=== PATIENT | female | born 1930 | race Caucasian/White ===

== ENCOUNTER → 2019-12-19 | Outpatient (CLI) | payer MEDICARE, OTHER ==
[~2019-12-19] MED LIST: ALEN70 PO; ASPI325 PO; ATOR20 PO; CALMAGZIN PO; CIPRO500 MG PO; CYAN500 PO; DOCCAL240 PO; ENAL20 PO; ERGO400 PO; FISH1000 PO; Flagyl500 MG PO; GABA300 PO; HYDACE10B PO; HYDACE5 PO; HYDR1TAB94 PO; LAVAP17G PO; METO25 PO; MULVIT PO; MULVITMINF PO; NAPR220 PO; NAPR250 PO; OMEP20ER PO; OSTEO BI-FLEX1 EAC2 PO; OXYACE5T PO; PRAM.125 PO; PRAM.5 PO; PROM25 PO; PSYL5.85P PO; Prednisone20 MG PO; SIMV40 PO; Super B Comple150 MG PO; TAMS.4ER PO; THERA-D2000 UNIT PO; TRAM50 PO; TRAZ150T57 PO; TRAZ50 PO; UBID10; VITB100 PO
== END | disposition home or self-care (01) ==
LOC: PLD 08:31 → LAB SHORT 08:31
DX: D48.5 Neoplasm of uncertain behavior of skin (principal); L82.1 Other seborrheic keratosis
CPT/HCPCS: 88305

== ENCOUNTER 2019-12-22 09:15 | Observation (INO) | payer MEDICARE, OTHER ==
[~2019-12-22] VITALS: Ht 170.2 cm; Wt 66.5 kg
[~2019-12-22 09:15] MED LIST changes: -ATOR20 PO; -METO25 PO; -THERA-D2000 UNIT PO
[2019-12-22 09:51] LABS: BASOPHILS ABSOLUTE AUTO 0.05 K/mm3 (0.00-0.23); BASOPHILS PERCENT AUTO 1 % (0-2); EOSINOPHILS ABSOLUTE AUTO 0.09 K/mm3 (0.00-0.68); EOSINOPHILS PERCENT AUTO 2 % (0-6); Hematocrit 39.1 % (33.0-51.0); Hemoglobin 13.2 g/dL (11.5-16.0); IMMATURE GRAN ABSOLUTE AUTO 0.01 K/mm3 (0.00-0.10); IMMATURE GRAN PERCENT AUTO 0 % (0-1); LYMPHOCYTES ABSOLUTE AUTO 1.51 K/mm3 (0.84-5.20); LYMPHOCYTES PERCENT AUTO 26 % (21-46); MONOCYTES ABSOLUTE AUTO 0.33 K/mm3 (0.16-1.47); MONOCYTES PERCENT AUTO 6 % (4-13); Mean Corpuscular HGB 32.1 pg (26.0-34.0); Mean Corpuscular HGB Conc 33.8 g/dL (31.5-36.5); Mean Corpuscular Volume 95 fL (80-100); Mean Platelet Volume 9.7 fL (9.1-12.4); NEUTROPHILS PERCENT AUTO 66 % (41-73); Platelet Count 167 K/mm3 (150-400); RDW Coefficient Variation 12.5 % (11.7-14.2); RDW Standard Deviation 43.5 fL (35.1-46.3); Red Blood Cell Count 4.11 M/mm3 (3.80-5.20); White Blood Cell Count 5.89 K/mm3 (4.00-11.30)
[2019-12-22 09:56] LABS: Albumin, Blood 3.3 g/dL (3.4-5.0); Albumin/Globulin Ratio 1.1 (0.8-1.8); Bilirubin, Total 0.3 mg/dL (0.1-1.0); Bun/Creatinine Ratio 23.9 (12.0-20.0); Calcium, Blood 10.3 mg/dL (8.5-10.1); Creatinine, Blood 1.09 mg/dL (0.40-1.00); Globulin, Blood 3.1 g/dL (2.2-4.0); Potassium, Blood 4.2 mmol/L (3.5-5.5); Total Protein, Blood 6.4 g/dL (6.4-8.2)
[2019-12-22 10:00] LABS: Troponin I 0.058 ng/mL (0.000-0.040)
[2019-12-22 11:09] LABS: International Normalized Ratio 1.02; Prothrombin Time Results 10.9 Sec (9.7-11.5)
--- NOTE | 2019-12-22 14:53 | NUR ---
echocardiogram complete
--- NOTE | 2019-12-22 16:26 | NUR ---
ASSUMED CARE / DR DIA: REPORT RECEIVED FROM ONEYDA Kingston RN. ASSUMED CARE OF THIS PT AT APPROX 1500. ON ASSUMPTION OF CARE, PT IS AWAKE, A&O, INDEPENDENT IN ROOM. SHE DENIES CP AT THIS TIME & VSS, SLIGHT HTN. FRIEND IS AT BEDSIDE & PT DENIES NEEDS. DR DIA AT BEDSIDE TO EVAL PT. STS SHE IS OKAY TO HAVE DINNER TONIGHT, WE WILL CONTINUE TO TREND TROPONIN LEVELS & PT MAY D/C TOMORROW W/ SCHEDULED ANGIOGRAM IF NO FURTHER EPISODES OF CP OCCUR. IF CP OCCURS DURING THE NIGHT, PT MAY BE SCHEDULED FOR INPATIENT ANGIO TOMORROW. KEEP NPO AFTER MN EITHER WAY. LISINOPRIL ORDERS PLACED FOR BP CONTROL PHARMACY DOES NOT HAVE ENALOPRIL IN FORMULARY. WILL CONTINUE TO MONITOR & UPDATE NEEDED.
--- NOTE | 2019-12-22 18:37 | NUR ---
SHIFT SUMMARY: NO ACUTE CHANGES SINCE ASSUMING CARE. PT REMAINS A&O, IND IN ROOM, USING CANE FOR AMBULATION. PT ON RA W/ O2 SATS > 92%. MONITOR SHOWS SR W/ HR 60s. PT VOIDING W/O DIFFICULTY. WILL CONTINUE TO MONITOR & REPORT OFF TO ONCOMING RN.
[2019-12-23 04:04] LABS: BASOPHILS ABSOLUTE AUTO 0.05 K/mm3 (0.00-0.23); BASOPHILS PERCENT AUTO 1 % (0-2); EOSINOPHILS ABSOLUTE AUTO 0.17 K/mm3 (0.00-0.68); EOSINOPHILS PERCENT AUTO 3 % (0-6); Hematocrit 37.6 % (33.0-51.0); Hemoglobin 12.8 g/dL (11.5-16.0); IMMATURE GRAN ABSOLUTE AUTO 0.02 K/mm3 (0.00-0.10); IMMATURE GRAN PERCENT AUTO 0 % (0-1); LYMPHOCYTES ABSOLUTE AUTO 2.03 K/mm3 (0.84-5.20); LYMPHOCYTES PERCENT AUTO 32 % (21-46); MONOCYTES ABSOLUTE AUTO 0.49 K/mm3 (0.16-1.47); MONOCYTES PERCENT AUTO 8 % (4-13); Mean Corpuscular HGB 32.2 pg (26.0-34.0); Mean Corpuscular Volume 95 fL (80-100); Mean Platelet Volume 9.9 fL (9.1-12.4); NEUTROPHILS ABSOLUTE AUTO 3.53 K/mm3 (1.96-9.15); NEUTROPHILS PERCENT AUTO 56 % (41-73); Platelet Count 162 K/mm3 (150-400); RDW Coefficient Variation 12.5 % (11.7-14.2); RDW Standard Deviation 43.7 fL (35.1-46.3); Red Blood Cell Count 3.97 M/mm3 (3.80-5.20); White Blood Cell Count 6.29 K/mm3 (4.00-11.30)
[2019-12-23 04:18] LABS: International Normalized Ratio 1.07; Prothrombin Time Results 11.4 Sec (9.7-11.5)
[2019-12-23 04:27] LABS: Albumin, Blood 3.1 g/dL (3.4-5.0); Bilirubin, Total 0.5 mg/dL (0.1-1.0); Bun/Creatinine Ratio 21.4 (12.0-20.0); Creatinine, Blood 1.17 mg/dL (0.40-1.00); Magnesium, Blood 2.2 mg/dL (1.6-2.4); Potassium, Blood 3.9 mmol/L (3.5-5.5); Total Protein, Blood 6.1 g/dL (6.4-8.2)
--- NOTE | 2019-12-23 06:09 | NUR ---
SHIFT SUMMARY PT A&O; PT SBA TO BATHROOM FOR IV PUMP MANAGEMT; USES CANE PT STATES BASELINE; PT IS CURRENTLY NPO FOR ANTICIPATED PROCEDURES; PT DENIES CHEST PAIN T/O NIGHT; VSS; O2 SATS >94 ON RA; PT ASSISTED W/ AM CARE; CALL LIGHT IN REACH; BED IN LOWEST POSITION; WILL CONTINUE TO MONITOR UNTIL HAND OFF TO DAY SHIFT RN.
[2019-12-23] MEDS ORDERED: METO25 PO (11:20)
[2019-12-23] MEDS ORDERED: ATOR20 PO (11:20)
[2019-12-23] MEDS ORDERED: THERA-D2000 UNIT PO (11:21)
== END 2019-12-23 13:26 | disposition home or self-care (01) ==
LOC: ER 09:15 → PCU 09:16 → ER 12:12 → PCU 13:55
PROVIDERS: Emergency Medicine; Nurse Practitioner Acute Care; Physician Assistant; ADMIT Internal Medicine
DX: I21.4 Non-ST elevation (NSTEMI) myocardial infarction (principal); I12.9 Hypertensive chronic kidney disease with stage 1 through stage 4 chronic kidney disease, or unspecified chronic kidney disease; N18.3 Chronic kidney disease, stage 3 (moderate); M19.90 Unspecified osteoarthritis, unspecified site; K21.9 Gastro-esophageal reflux disease without esophagitis; E78.5 Hyperlipidemia, unspecified; I25.10 Atherosclerotic heart disease of native coronary artery without angina pectoris; G25.81 Restless legs syndrome; Z66 Do not resuscitate; Z79.82 Long term (current) use of aspirin; Z79.899 Other long term (current) drug therapy; Z79.02 Long term (current) use of antithrombotics/antiplatelets; Z88.6 Allergy status to analgesic agent
CPT/HCPCS: 36415; 71045; 80053; 83735; 84484; 85025; 85610; 85730; 93005; 93010; 93306; 96365; 96366; 99285-25; J1644; J7030

== ENCOUNTER → 2020-06-28 | Outpatient (CLI) | payer MEDICARE, OTHER ==
[~2020-06-28] MED LIST changes: +ATOR20 PO; +METO25 PO; +THERA-D2000 UNIT PO
[2020-06-28 19:39] LABS: Calcium, Urine 6.3 mg/dL (< 17.5); Calcium, Urine Calculation 44.1 mg/24hrs (42.0-353.0)
== END | disposition home or self-care (01) ==
LOC: LAB UCHC 09:00 → LAB SHORT 09:00
PROVIDERS: Family Medicine
DX: E21.3 Hyperparathyroidism, unspecified (principal)
CPT/HCPCS: 81050; 82340

== ENCOUNTER → 2020-10-09 | Outpatient (CLI) | payer MEDICARE, OTHER ==
[2020-10-09 14:57] LABS: Calcium, Urine 14.1 mg/dL (< 17.5); Calcium, Urine Calculation 70.5 mg/24hrs (42.0-353.0)
[2020-10-09 15:22] LABS: Creatinine Urine 97.4 mg/dL (27.00-270.00)
== END | disposition home or self-care (01) ==
LOC: LAB SHORT 10:54 → LAB 10:54 → PLD 10:54
PROVIDERS: Internal Medicine Endocrinology, Diabetes & Metabolism
DX: E83.52 Hypercalcemia (principal)
CPT/HCPCS: 81050; 82340; 82570

== ENCOUNTER → 2021-03-04 | Outpatient (CLI) | payer MEDICARE, OTHER ==
[2021-03-04 13:15] LABS: U Amphetamine Screen Not Detected; U Barbituate Screen Not Detected; U Benzodiazapine Screen Not Detected; U Buprenorphine Screen Not Detected; U Cannabinoids Screen Not Detected; U Cocaine Screen Not Detected; U Methadone Screen Not Detected; U Methamphetamine Screen Not Detected; U Opiates Screen Not Detected; U Oxycodone Screen Not Detected; U Phencyclidine Screen Not Detected; U Propoxyphene Screen Not Detected
[2021-03-04 15:13] LABS: Calcium, Urine 15.1 mg/dL (< 17.5); Calcium, Urine Calculation 211.4 mg/24hrs (42.0-353.0)
== END | disposition home or self-care (01) ==
LOC: LAB 08:50 → LAB SHORT 08:50
PROVIDERS: Family Medicine; Internal Medicine Endocrinology, Diabetes & Metabolism
DX: E83.52 Hypercalcemia (principal); G89.4 Chronic pain syndrome; Z79.899 Other long term (current) drug therapy
CPT/HCPCS: 81050; 82340; 82570

== ENCOUNTER → 2021-05-23 | Outpatient (CLI) | payer MEDICARE, OTHER ==
[2021-05-23 09:32] LABS: Appearance, Urine Clear (Clear); Bilirubin, Urine Neg (Neg); Blood, Urine Neg (Neg); Color, Urine Yellow (P-Yellow); Glucose Qualitative, Urine Neg (Neg); Ketones, Urine Neg (Neg); Leukocyte Esterase, Urine 2+ (Neg); Nitrite, Urine Neg (Neg); Protein, Urine Neg (Neg); Urobilinogen, Urine NORM (Normal)
[2021-05-23 10:05] LABS: Creatinine, Urine Random 81.5 mg/dL (27.00-270.00); Protein, Urine Random 15.3 mg/dL (0.0-11.9); Protein/Creat Ratio, Ur Random 0.2
[2021-05-23 11:06] LABS: Bacteria Mod /hpf; Mucus Light (0-Heavy); Squamous Epithelial Cells Few /hpf (Few)
== END | disposition home or self-care (01) ==
LOC: LAB SHORT 08:33 → LAB FUT 05-21 10:15
PROVIDERS: Internal Medicine
DX: N18.32 Chronic kidney disease, stage 3b (principal)
CPT/HCPCS: 81001; 82570; 84156

== ENCOUNTER 2021-06-20 16:47 | Observation (INO) | payer MEDICARE, OTHER ==
[~2021-06-20] VITALS: Ht 172.7 cm; Wt 69.0 kg
[~2021-06-20 16:47] MED LIST changes: +Enalapril Malea20 MG PO
[2021-06-20 17:13] LABS: Source, Urine Catheter
[2021-06-20 17:15] LABS: Appearance, Urine Clear (Clear); Bilirubin, Urine Neg (Neg); Blood, Urine 5+ (Neg); Color, Urine Yellow (P-Yellow); Glucose Qualitative, Urine Neg (Neg); Ketones, Urine Neg (Neg); Leukocyte Esterase, Urine 3+ (Neg); Nitrite, Urine Neg (Neg); Protein, Urine 2+ (Neg); Specific Gravity, Urine 1.025 (1.003-1.022); Urobilinogen, Urine NORM (Normal)
[2021-06-20 17:28] LABS: Bacteria Many /hpf; Red Blood Cells, Urine 0-2 /hpf (0-2); Squamous Epithelial Cells Few /hpf (Few)
[2021-06-20 17:38] LABS: BASOPHILS ABSOLUTE AUTO 0.02 K/mm3 (0.00-0.23); BASOPHILS PERCENT AUTO 0 % (0-2); EOSINOPHILS PERCENT AUTO 0 % (0-6); Hemoglobin 12.2 g/dL (11.5-16.0); IMMATURE GRAN ABSOLUTE AUTO 0.04 K/mm3 (0.00-0.10); IMMATURE GRAN PERCENT AUTO 0 % (0-1); LYMPHOCYTES ABSOLUTE AUTO 0.97 K/mm3 (0.84-5.20); LYMPHOCYTES PERCENT AUTO 8 % (21-46); MONOCYTES ABSOLUTE AUTO 0.96 K/mm3 (0.16-1.47); MONOCYTES PERCENT AUTO 8 % (4-13); Mean Corpuscular HGB 30.9 pg (26.0-34.0); Mean Corpuscular HGB Conc 33.9 g/dL (31.5-36.5); Mean Corpuscular Volume 91 fL (80-100); Mean Platelet Volume 10.4 fL (9.1-12.4); NEUTROPHILS ABSOLUTE AUTO 10.73 K/mm3 (1.96-9.15); NEUTROPHILS PERCENT AUTO 84 % (41-73); Platelet Count 174 K/mm3 (150-400); RDW Coefficient Variation 13.7 % (11.7-14.2); RDW Standard Deviation 46.1 fL (35.1-46.3); Red Blood Cell Count 3.95 M/mm3 (3.80-5.20); White Blood Cell Count 12.72 K/mm3 (4.00-11.30)
[2021-06-20 18:00] LABS: Albumin, Blood 3.9 g/dL (3.4-5.0); Albumin/Globulin Ratio 1.1 (0.8-1.8); Bilirubin, Total 0.6 mg/dL (0.1-1.0); Bun/Creatinine Ratio 27.1 (12.0-20.0); Creatinine, Blood 1.29 mg/dL (0.40-1.00); Globulin, Blood 3.5 g/dL (2.2-4.0); Potassium, Blood 3.9 mmol/L (3.5-5.5); Total Protein, Blood 7.4 g/dL (6.4-8.2)
--- NOTE | 2021-06-21 04:58 | NUR ---
STEVEDORE DOCK SUMMARY NEW ADMIT FROM THE ED TONIGHT. PT AAOX3 BUT DOES HAVE BASELINE DEMENTIA AND IS FORGETFUL/CONFUSED AT TIMES. THUS FAR HAS BEEN USING CALL LIGHT APPROPRIATELY BUT BED ALARM IS ON FOR SAFETY. PT IS A HEAVY 1 PERSON ASSIST, VERY WEAK AND REPORTS SOME PAINS IN HIPS WHILE AMBULATING. PT HAS ABRASIONS ON HER FOREHEAD AND KNEES/LEGS FROM FALL AT HOME. BEFORE GOING TO BED PT REPORTED DISCOMFORT IN HER LEGS FROM RESTLESS LEG SYNDROME. RECIEVED ORDER FOR TRAMADOL X1 AND MIRAPEX PER DR TERRY, PT TAKES BOTH MEDICATIONS AT HOME NORMALLY. VSS, WILL CONTINUE TO MONITOR.
[2021-06-21 05:06] LABS: BASOPHILS ABSOLUTE AUTO 0.03 K/mm3 (0.00-0.23); BASOPHILS PERCENT AUTO 0 % (0-2); EOSINOPHILS PERCENT AUTO 0 % (0-6); Hematocrit 34.1 % (33.0-51.0); IMMATURE GRAN ABSOLUTE AUTO 0.03 K/mm3 (0.00-0.10); IMMATURE GRAN PERCENT AUTO 0 % (0-1); LYMPHOCYTES ABSOLUTE AUTO 1.23 K/mm3 (0.84-5.20); LYMPHOCYTES PERCENT AUTO 10 % (21-46); MONOCYTES ABSOLUTE AUTO 1.13 K/mm3 (0.16-1.47); MONOCYTES PERCENT AUTO 9 % (4-13); Mean Corpuscular HGB 31.1 pg (26.0-34.0); Mean Corpuscular HGB Conc 32.3 g/dL (31.5-36.5); Mean Corpuscular Volume 96 fL (80-100); Mean Platelet Volume 10.3 fL (9.1-12.4); NEUTROPHILS ABSOLUTE AUTO 10.34 K/mm3 (1.96-9.15); NEUTROPHILS PERCENT AUTO 81 % (41-73); Platelet Count 133 K/mm3 (150-400); RDW Coefficient Variation 13.9 % (11.7-14.2); RDW Standard Deviation 49.1 fL (35.1-46.3); Red Blood Cell Count 3.54 M/mm3 (3.80-5.20); White Blood Cell Count 12.76 K/mm3 (4.00-11.30)
[2021-06-21 06:04] LABS: Calcium, Blood 9.9 mg/dL (8.5-10.1); Creatinine, Blood 1.35 mg/dL (0.40-1.00); Potassium, Blood 3.6 mmol/L (3.5-5.5)
--- NOTE | 2021-06-21 12:59 | NUR ---
Pt confused. She does not know where she is. Placed chair alarm and bed alarm; pt is impulsive and getting up. She says "ouch, ouch, ouch" when repositioning or getting out of bed. Pt is transfering and ambulating with shuffling gait - fww and gait belt. Needs constant reorientation. Calls placed to Dr. Hartman. Orders for pain medication and xray. Will continue to monitor.
[2021-06-21] MEDS ORDERED: MELA3 PO (13:52)
[2021-06-21] MEDS ORDERED: ACET500 PO (13:52)
[2021-06-21] MEDS ORDERED: MIRALAX17 GM PO (13:53)
[2021-06-21] MEDS ORDERED: TOLT2 PO (13:54)
[2021-06-21] MEDS ORDERED: Ultram50 MG PO (13:54)
[2021-06-21] MEDS ORDERED: Voltaren100 GM TOP (13:55)
--- NOTE | 2021-06-21 15:49 | NUR ---
Pt frequently attempting to stand and get up. She is wincing in pain when she does so, but will not sit back down until directed. It appears that she is not realizing what is causing her some pain (action of standing). Pt remains confused, she does not know where she is. Pt has a visitor at the bedside keeping her company. He cannot redirect her well either. Tramadol given for pain. Pt's friend at bedside reports that he is a close friend. He is the one that found her down at her house. He states that she is usually confused, but not this confused. This confusion is likely exacerbated by pt not being in her usual surroundings. Spoke to pt's daughter. She states that pt has progressively gotten more forgetful and unsafe at home. She is asking that the pt be placed in a group home. Pt does have a oncology social work consult.
--- NOTE | 2021-06-21 16:58 | NUR ---
Update 06/21/21: Discussed care with patient's geriugher Viji. Pt. ultimately needs superintendent container terminal care. We have discussed the possibility of [facility] and [facility] for placement. I have reached out to [facility] and requested that they talk with Viji regarding financial planning and potential placement. Daughter will keep working on things over the weekend as well. Pt. has VA coverage as well. Not likely to D/C over the weekend. We will finish planning on Thursday.
--- NOTE | 2021-06-21 18:25 | NUR ---
Pt alert, not oriented. She has a friend at bedside, he states that he has never seen her this confused. She is asking him to put things in the kitchen and in the garage. He sat by her this afternoon during visitor's hours and kept her entertained and happy - redirecting her if she attempted to stand. However, she is now already setting her alarms off. Pt back to bed, bed alarm on. Post void bladder scan is 0ml. Will continue to monitor.
[2021-06-22 05:17] LABS: BASOPHILS ABSOLUTE AUTO 0.01 K/mm3 (0.00-0.23); BASOPHILS PERCENT AUTO 0 % (0-2); EOSINOPHILS PERCENT AUTO 0 % (0-6); Hematocrit 32.6 % (33.0-51.0); Hemoglobin 10.3 g/dL (11.5-16.0); IMMATURE GRAN ABSOLUTE AUTO 0.05 K/mm3 (0.00-0.10); IMMATURE GRAN PERCENT AUTO 1 % (0-1); LYMPHOCYTES ABSOLUTE AUTO 1.33 K/mm3 (0.84-5.20); LYMPHOCYTES PERCENT AUTO 14 % (21-46); MONOCYTES ABSOLUTE AUTO 0.74 K/mm3 (0.16-1.47); MONOCYTES PERCENT AUTO 8 % (4-13); Mean Corpuscular HGB 30.7 pg (26.0-34.0); Mean Corpuscular HGB Conc 31.6 g/dL (31.5-36.5); Mean Corpuscular Volume 97 fL (80-100); Mean Platelet Volume 10.8 fL (9.1-12.4); NEUTROPHILS PERCENT AUTO 78 % (41-73); Platelet Count 125 K/mm3 (150-400); RDW Coefficient Variation 13.9 % (11.7-14.2); RDW Standard Deviation 49.1 fL (35.1-46.3); Red Blood Cell Count 3.35 M/mm3 (3.80-5.20); White Blood Cell Count 9.73 K/mm3 (4.00-11.30)
--- NOTE | 2021-06-22 05:53 | NUR ---
SHIFT SUMMARY- PT. ALERT TO SELF ONLY, CONFUSED T/O THE NIGHT. IMPULSIVE GETTING OOB SEVERAL TIMES LAST NIGHT. PT. HIGH FALL RISK, WEAK, WITH AN UNSTEADY GAIT. ATTEMPTED TO REDIRECT PT. MULTIPLE TIMES W/O SUCCESS. NOTIFIED HOSPITALIST, ORDER TO PLACE PT. IN SARAH VEST. ALSO MEDICATED FOR C/O PAIN TO HIP, APPEARED TO HAVE GOOD RELIEF. FLUIDS INFUSING, VSS. CALL LIGHT WITHIN REACH, SIDE RAILS UPX4, AND BED ALARM ON. WILL CONT TO MONITOR.
[2021-06-22 06:01] LABS: Albumin, Blood 2.8 g/dL (3.4-5.0); Anion Gap 5 mmol/L (6-16); Blood Urea Nitrogen 29 mg/dL (8-24); Bun/Creatinine Ratio 23.2 (12.0-20.0); CO2, Blood 23 mmol/L (21-32); Calcium, Blood 9.4 mg/dL (8.5-10.1); Chloride, Blood 113 mmol/L (98-108); Creatinine, Blood 1.25 mg/dL (0.40-1.00); Glomerular Filtration Rate 40 (60-); Glucose, Blood 199 mg/dL (70-99); Phosphorus, Blood 2.6 mg/dL (2.5-4.9); Potassium, Blood 3.7 mmol/L (3.5-5.5); Sodium, Blood 141 mmol/L (136-145)
[2021-06-22 06:13] LABS: CPK Creatine Kinase 1909 U/L (26-193)
[2021-06-22 06:28] LABS: Creatine Kinase MB 18.3 ng/mL (0.0-3.6)
--- NOTE | 2021-06-22 08:26 | NUR ---
RN NOTE: RECIEVED CRITICAL TROPONIN VALUE OF 7.23 AT 0809. PT ASYMPTOMATIC, RESTING IN CHAIR AT BEDSIDE, WITH NO SIGNS OF SOB, DENIES CP/PRESSURE. REPORTS LEFT HIP PAIN FRON HER FALL AT HOME. NO S/S OF DISTRESS. DR. SIMS NOTIFIED OF VALUE. SBAR GIVEN. TO: ECHO, REPEAT TROPONIN IN 6 HOURS. ORDERS PROCESSED.
--- NOTE | 2021-06-22 15:11 | NUR ---
Echocardiogram using 0.50ml of Definity contrast performed.
--- NOTE | 2021-06-22 15:22 | NUR ---
TROPONIN LEVEL 4.83 TRENDING DOWN. LEFT MESSAGE WITH DR. SIMS. NO CONCERNS AT THIS TIME LEVEL IS TRENDING DOWN AND PT IS ASYMPTOMATIC.
--- NOTE | 2021-06-22 18:39 | NUR ---
RN SHIFT SUMMARY: PT A/O TO SELF. SHE HAS BEEN PLEASANT AND COOP THROUGHOUT THE DAY. IMPULSIVE AT TIMES. PT C/O PAIN IN LEFT HIP. CONTROLLED WITH ULTRAM AND TYLENOL. PAIN IS WORSE WHEN SHE IS UP AMBULATING. PT AMBULATED WITH STANDBY ASSIST/WALKER GAIT BELT TODAY AND APPEARED TO DO WELL. PT TROPONIN LEVELS WERE ELEVATED AND TRENDING DOWN. PER MD DR. SIMS SINCE THEY ARE TRENDING DOWN SHE WILL NOT ORDER FURTHER TROPONIN LAB. NO OTHER ACUTE CONCERNS TODAY.
[2021-06-23 05:05] LABS: BASOPHILS ABSOLUTE AUTO 0.04 K/mm3 (0.00-0.23); BASOPHILS PERCENT AUTO 1 % (0-2); EOSINOPHILS ABSOLUTE AUTO 0.25 K/mm3 (0.00-0.68); EOSINOPHILS PERCENT AUTO 4 % (0-6); Hematocrit 33.3 % (33.0-51.0); Hemoglobin 10.6 g/dL (11.5-16.0); IMMATURE GRAN ABSOLUTE AUTO 0.04 K/mm3 (0.00-0.10); IMMATURE GRAN PERCENT AUTO 1 % (0-1); LYMPHOCYTES ABSOLUTE AUTO 1.63 K/mm3 (0.84-5.20); LYMPHOCYTES PERCENT AUTO 24 % (21-46); MONOCYTES ABSOLUTE AUTO 0.65 K/mm3 (0.16-1.47); MONOCYTES PERCENT AUTO 10 % (4-13); Mean Corpuscular HGB 30.3 pg (26.0-34.0); Mean Corpuscular HGB Conc 31.8 g/dL (31.5-36.5); Mean Corpuscular Volume 95 fL (80-100); NEUTROPHILS PERCENT AUTO 62 % (41-73); Platelet Count 140 K/mm3 (150-400); RDW Coefficient Variation 13.8 % (11.7-14.2); RDW Standard Deviation 47.7 fL (35.1-46.3); White Blood Cell Count 6.81 K/mm3 (4.00-11.30)
--- NOTE | 2021-06-23 05:42 | NUR ---
SHIFT SUMMARY- NO ACUTE EVENTS OVERNIGHT. PT. ALERT TO SELF, CONFUSED DURING THE NIGHT. SLEPT ON/OFF, OCCASIONALLY IMPULSIVE. PT. REDIRECTABLE, USES BSC W/WALKER AND 1 ASSIST. MEDICATED FOR COMPLAINTS OF L HIP PAIN 1X WITH GOOD EFFECT. NO OTHER COMPLAINTS T/O THE NIGHT, VSS. CALL LIGHT WITHIN REACH, SIDE RAILS UP X3 AND BED ALARM ON. WILL CONT TO MONITOR.
[2021-06-23 05:43] LABS: Bun/Creatinine Ratio 23.7 (12.0-20.0); Calcium, Blood 9.4 mg/dL (8.5-10.1); Creatinine, Blood 1.18 mg/dL (0.40-1.00); Potassium, Blood 3.5 mmol/L (3.5-5.5)
--- NOTE | 2021-06-23 11:19 | NUR ---
INCREASING CONFUSION REPORTED TO DR. SIMS RE INCREASED CONFUSION TODAY. V.O. TO OBTAIN URINALYSIS. ORDER UPDATED.
--- NOTE | 2021-06-23 16:03 | NUR ---
RN NOTE: TC TO DR. SIMS AND NOTIFIED HER ECHO RESULTS ARE AVAILABLE. ALSO DISCUSSED UA CX REPORT FROM ADMIT. NOTIFIED OF PT REMOVING HER PERIPHERAL IV. ORDERS RECEIVED TO DC UA AND NO IV ACCESS NEEDED. DISCUSSED PAIN MANAGEMENT WITH DR. SIMS AND ACUTE PAIN PT HAS WHEN GETTING UP TO AMBULATE. DR. SIMS WILL ORDER A CT OF LEFT HIP.
--- NOTE | 2021-06-23 18:35 | NUR ---
RN SHIFT NOTE: PT A/O TO SELF. HAS BEEN MORE FORGETFUL AND IMPULSIVE TODAY TRYING TO "LEAVE TO GO HOME". PT RE-ORIENTED BUT FORGETS SOON AFTER. SHE PULLED HER IV OUT AND ORDER RECEIVED OK TO LEAVE IV OUT. PAIN HAS BEEN MANAGED WITH A COMBO OF ULTRAM AND TYLENOL. CT ORDERED OF L HIP TO R/OUT FRACTURE CAUSE OF INCREASED PAIN. AWAITING CT. PT IN CHAIR WITH SARAH VEST ON AT END OF SHIFT. PAINAD IS 4/10 DUE TO REPORTED PAIN AND WINCING WHEN SHE MOVES HER LEFT LEG. NO OTHER ACUTE CONCERNS THIS SHIFT.
--- NOTE | 2021-06-24 05:52 | NUR ---
SHIFT SUMMARY- CONFUSION INCREASED T/O THE NIGHT WITH SOME VISUAL HALLUCINATIONS. PT. VERY RESTLESS, AGITATED, AND IMPULSIVE. REMAINED IN SARAH VEST T/O THE NIGHT. 1-2 ASSIST W/WALKER TO BSC, PT. WEAK/UNSTEADY GAIT AND BECOMES VERY ANXIOUS WHEN STANDING. HAD COMPLAINTS OF L HIP PAIN. MEDICATED WITH TRAMADOL PER EMAR X2. APPEARED TO HAVE GOOD RELIEF. THIS AM PT. SITTING UP IN CHAIR, SARAH IN PLACE. NO APPARENT DISTRESS NOTED. CALL LIGHT WITHIN REACH AND CHAIR ALARM ON. WILL CONT TO MONITOR.
--- NOTE | 2021-06-24 17:10 | NUR ---
Update 06/24/21: Per chart review with Dr. Birmingham, pt. likely appropriate for discharge within the next 24-48 hours. Discussed discharge planning and care coordination with pt. She seemed a bit confused. Pt. was pleasant throughout our conversation. She was able to repeat the care plan that we had discussed and remembered my name prior to me leaving the room. She thanked me for making the arrangements. Pt. agreeable to SNF and director long term care care at [facility] if she is accepted.
--- NOTE | 2021-06-25 04:56 | NUR ---
SHIFT SUMMARY PT REMAINED OUT OF RESTRAINTS FOR THE DURATION OF THE SHIFT. BED ALARM OR CHAIR ALARM SET. PT ALERT TO SELF ONLY, PLEASANT WITH STAFF AND RESPONSIVE TO REDIRECTION/CUEING. SHE IS ONE PERSON ASSIST USING WALKER AND GAIT BELT. MEDICATED FOR HIP PAIN WITH TYLENOL AND TRAMADOL, PER EMAR. VSS, WILL CONTINUE TO MONITOR.
--- NOTE | 2021-06-25 06:12 | NUR ---
PHONE CALL TO DR MELVIN HAD EPISODE OF ANXIETY LASTING 20 MINUTES. PT WAS TEARFUL, STATING, "I FEEL LIKE I CAN'T BREATHE". ROSIE MADE STATEMENTS OF FEELING "ABANDONED" BY HER FAMILY. SHE STATED THE PAIN IN HER HIP AND FEELING "PUSHED OUT" WERE CAUSING HER ANXIETY. RN PLACED PHONE CALL TO [facility] WITH ORDERS FOR ATIVAN 0.5MG PRN ANXIETY, TO BE USED ONLY IF PT IS NOT RESPONDING TO DISTRACTION AND REDIRECTION FOR ANXIETY.
--- NOTE | 2021-06-25 09:11 | NUR ---
Update 06/25/2021: Left message for patient's daughter Viji to return my call. Pt. likely to benefit from SNF rehab, but another option would be [facility] with Home Health PT/OT. I have discussed with pt. and she was agreeable to either. If HHC at correction facility would cause delay in outpatient PT, likely best that pt. go to SNF first. [facility] nursing staff will be assessing pt. this am for placement. [facility] is also reviewing pt. and should have an answer on accepting her this am.
--- NOTE | 2021-06-25 16:54 | NUR ---
SHIFT SUMMARY AMBULATED IN HALLWAY WITH P.T. AND NURSING STAFF. UP TO CHAIR MOST OF SHIFT, AND AMBULATING TO BATHROOM. PAIN TO HIP OFTEN 8/10 BETWEEN DOSES OF TYLENOL/TRAMADOL, WHICH PROVIDE RELIEF TO PATIENT SAITSFACTION. VISITED BY DAUGHTERS FROM [place] AND STAFF AT [facility]. REMAINS IMPULSIVE/CONFUSED BUT REDIRECTABLE.
--- NOTE | 2021-06-25 17:11 | NUR ---
Update 06/25/2021: Pt. was assessed by [facility] for possible placement this am. They have accepted her. Family is in the process of completing the paperwork. Pt. seems very excited to be moving into the facility. Per [facility] staff Ольга, pt. will be able to move in on 06/27/21 as long as all paperwork completed by that time. I have ordered a hospital bed through [facility] to be delivered tomorrow with room TBD. Family denies any additional needs at this time.Home health will be ordered for PT as well. Pt. denied preference. Will discuss with daughter in the am.
--- NOTE | 2021-06-26 04:24 | NUR ---
SHIFT SUMMARY ADMITTED FOR RHABDOMYOLYSIS. DNR CODE. FOUND DOWN AT HOME. PLAN IS FOR PLACEMENT. SHE IS ON ELIQUIS. SHE IS A&O X4, WITH PERIODS OF CONFUSION. SHE CAN GET ANXIOUS AT TIMES, BUT SHE IS REDIRECTABLE. SHE IS A 1 ASSIST W/FWW - BRP. ADA DIET. PILLS WHOLE W/WATER. SHE CAN BE IMPULSIVE AT TIMES, BUT ONLY WHEN SHE NEEDS TO URINATE. SHE STATES SHE HAS LEFT HIP PAIN, IMAGING HAS BEEN NEGATIVE FOR INJURY
[2021-06-26 05:25] LABS: BASOPHILS ABSOLUTE AUTO 0.03 K/mm3 (0.00-0.23); BASOPHILS PERCENT AUTO 0 % (0-2); EOSINOPHILS ABSOLUTE AUTO 0.22 K/mm3 (0.00-0.68); EOSINOPHILS PERCENT AUTO 3 % (0-6); Hemoglobin 10.8 g/dL (11.5-16.0); IMMATURE GRAN ABSOLUTE AUTO 0.04 K/mm3 (0.00-0.10); IMMATURE GRAN PERCENT AUTO 1 % (0-1); LYMPHOCYTES ABSOLUTE AUTO 1.25 K/mm3 (0.84-5.20); LYMPHOCYTES PERCENT AUTO 17 % (21-46); MONOCYTES ABSOLUTE AUTO 0.69 K/mm3 (0.16-1.47); MONOCYTES PERCENT AUTO 10 % (4-13); Mean Corpuscular HGB 30.9 pg (26.0-34.0); Mean Corpuscular HGB Conc 32.7 g/dL (31.5-36.5); Mean Corpuscular Volume 95 fL (80-100); Mean Platelet Volume 10.5 fL (9.1-12.4); NEUTROPHILS ABSOLUTE AUTO 5.05 K/mm3 (1.96-9.15); NEUTROPHILS PERCENT AUTO 69 % (41-73); Platelet Count 183 K/mm3 (150-400); RDW Coefficient Variation 13.9 % (11.7-14.2); RDW Standard Deviation 47.8 fL (35.1-46.3); Red Blood Cell Count 3.49 M/mm3 (3.80-5.20); White Blood Cell Count 7.28 K/mm3 (4.00-11.30)
[2021-06-26 06:08] LABS: Creatinine, Blood 1.27 mg/dL (0.40-1.00); Potassium, Blood 3.9 mmol/L (3.5-5.5)
--- NOTE | 2021-06-26 15:34 | NUR ---
Update 06/26/2021: Pt. appropriate for discharge. [facility] has accepted her and arrangements have been made with family to bring her belongings to the facilities. Hospital bed sent by [facility] to [facility]. Discharge orders faxed to [facility]. Pt. will need a COVID test and that orders has been requested from Dr. Birmingham.
--- NOTE | 2021-06-26 18:04 | NUR ---
SHIFT SUMMARY REMAINS IMPULSIVE, FREQUENTLY STANDING FROM CHAIR/BED. ALARM IN PLACE. REDIRECTABLE. MILD AGITATION AT TIMES. NO BM, BOWEL CARE GIVEN
[2021-06-26 18:06] LABS: SARS-Cov-2 (COVID-19) PCR, MMC NEGATIVE (NEGATIVE)
--- NOTE | 2021-06-27 03:14 | NUR ---
SECURITY ESCORT SUMMARY HAS BEEN AWAKE AND DIFFICULT TO REDIRECT WHILE TRYING TO GET OUT OF BED MULTIPLE TIMES. ATIVAN PO ADMIN. LINEN CHANGED PT PULLED WATER OFF TFAY TABLE ONTO BED AND GOT BED WET. CALL LIGHT IN REACH. WARM BLANKET APPLIED. ENCOURAGED TO TRY TO SLEEP.
[2021-06-27] MEDS ORDERED: ELIQUIS2.5 MG PO (10:57)
[2021-06-27] MEDS ORDERED: ASPI81CH PO (10:57)
[2021-06-27] MEDS ORDERED: ATOR20 PO (10:57)
[2021-06-27] MEDS ORDERED: SENNA LAXATIVE8.6 MG PO (10:58)
[2021-06-27] MEDS ORDERED: CALYPXO HP CRE113 GM TOP (10:59)
--- NOTE | 2021-06-27 11:53 | NUR ---
SUMMARY/DISCHARGE PT DISCHARGED TO [facility], DAUGHTER HERE, PT PLEASANTLY CONFUSED, COOPERATIVE WITH CARE, NEEDS REDIRECTION, PT UP WITH 1P ASSIST AND THE WALKER, CALLED [facility] AND NOTIFIED THEM OF DISCHARGE, PT TAKEN OUT SAFELY VIA WHEELCHAIR
--- NOTE | 2021-06-27 15:51 | NUR ---
SUMMARY: 06/27/21- pt discharged from hospital today. Transportation set up for pt to go to [facility]. -asiya
== END 2021-06-27 11:50 | disposition home or self-care (01) ==
LOC: ER 16:47 → MEDS 16:48 → ER 16:48 → MEDS 16:48 → ER 20:44 → MEDS 20:47 → ER 06-22 22:36 → MEDS 06-22 22:36 → ENPENDDIS 06-26 13:41 → MEDS 06-27 11:50
PROVIDERS: Emergency Medicine; Family Medicine; Internal Medicine; ADMIT Family Medicine
DX: M62.82 Rhabdomyolysis (principal); I21.3 ST elevation (STEMI) myocardial infarction of unspecified site; I25.10 Atherosclerotic heart disease of native coronary artery without angina pectoris; F01.50 Vascular dementia, unspecified severity, without behavioral disturbance, psychotic disturbance, mood disturbance, and anxiety; I12.9 Hypertensive chronic kidney disease with stage 1 through stage 4 chronic kidney disease, or unspecified chronic kidney disease; N18.32 Chronic kidney disease, stage 3b; E11.22 Type 2 diabetes mellitus with diabetic chronic kidney disease; D69.6 Thrombocytopenia, unspecified; I51.81 Takotsubo syndrome; G25.81 Restless legs syndrome; N32.81 Overactive bladder; R29.6 Repeated falls; S00.81XA Abrasion of other part of head, initial encounter; S80.812A Abrasion, left lower leg, initial encounter; S80.811A Abrasion, right lower leg, initial encounter; W19.XXXA Unspecified fall, initial encounter; D72.829 Elevated white blood cell count, unspecified; E87.0 Hyperosmolality and hypernatremia; D64.9 Anemia, unspecified; M47.9 Spondylosis, unspecified; Z66 Do not resuscitate; Z51.5 Encounter for palliative care; Z88.5 Allergy status to narcotic agent; Z20.822 Contact with and (suspected) exposure to COVID-19
CPT/HCPCS: 36415; 70450; 73502; 73700; 80048; 80053; 80069; 81001; 82550; 82553; 83036; 84484; 85025; 87086; 93005; 93010; 96361; 96365; 97110; 97110-CQ; 97116; 97116-CQ; 97162; 97166; 97530; 97530-CQ; 97535; 97535-CO; 99285-25; A9270; C8929; G0378; J0696; J1644; J3010; J7030; J7042; J7120; Q9957; U0004

== ENCOUNTER 2022-01-21 18:32 | Emergency (ER) | payer MEDICARE, OTHER ==
[~2022-01-21] VITALS: Ht 170.2 cm; Wt 31.8 kg
[~2022-01-21 18:32] MED LIST changes: +ACET500 PO; +ASPI81CH PO; +CALYPXO HP CRE113 GM TOP; +ELIQUIS2.5 MG PO; +MELA3 PO; +MIRALAX17 GM PO; +SENNA LAXATIVE8.6 MG PO; +TOLT2 PO; +Ultram50 MG PO; +Voltaren100 GM TOP
[2022-01-21 20:25] LABS: BASOPHILS ABSOLUTE AUTO 0.05 K/mm3 (0.00-0.23); BASOPHILS PERCENT AUTO 1 % (0-2); EOSINOPHILS ABSOLUTE AUTO 0.23 K/mm3 (0.00-0.68); EOSINOPHILS PERCENT AUTO 3 % (0-6); Hemoglobin 13.8 g/dL (11.5-16.0); IMMATURE GRAN ABSOLUTE AUTO 0.03 K/mm3 (0.00-0.10); IMMATURE GRAN PERCENT AUTO 0 % (0-1); LYMPHOCYTES ABSOLUTE AUTO 1.71 K/mm3 (0.84-5.20); LYMPHOCYTES PERCENT AUTO 20 % (21-46); MONOCYTES ABSOLUTE AUTO 0.69 K/mm3 (0.16-1.47); MONOCYTES PERCENT AUTO 8 % (4-13); Mean Corpuscular HGB 31.4 pg (26.0-34.0); Mean Corpuscular HGB Conc 33.7 g/dL (31.5-36.5); Mean Corpuscular Volume 93 fL (80-100); Mean Platelet Volume 10.3 fL (9.1-12.4); NEUTROPHILS ABSOLUTE AUTO 6.01 K/mm3 (1.96-9.15); NEUTROPHILS PERCENT AUTO 69 % (41-73); Platelet Count 207 K/mm3 (150-400); RDW Coefficient Variation 13.7 % (11.7-14.2); RDW Standard Deviation 46.9 fL (35.1-46.3); White Blood Cell Count 8.72 K/mm3 (4.00-11.30)
[2022-01-21 21:13] LABS: Albumin, Blood 3.9 g/dL (3.4-5.0); Albumin/Globulin Ratio 1.2 (0.8-1.8); Bilirubin, Total 0.5 mg/dL (0.1-1.0); Bun/Creatinine Ratio 22.2 (12.0-20.0); Calcium, Blood 11.3 mg/dL (8.5-10.1); Creatinine, Blood 1.44 mg/dL (0.40-1.00); Globulin, Blood 3.3 g/dL (2.2-4.0); Potassium, Blood 5.2 mmol/L (3.5-5.5); Total Protein, Blood 7.2 g/dL (6.4-8.2)
[2022-01-21 23:56] LABS: Source, Urine Clean Catch
[2022-01-22 00:01] LABS: Bilirubin, Urine Neg (Neg); Blood, Urine Neg (Neg); Glucose Qualitative, Urine 3+ (Neg); Ketones, Urine Neg (Neg); Leukocyte Esterase, Urine Neg (Neg); Nitrite, Urine Neg (Neg); Protein, Urine 2+ (Neg); Urobilinogen, Urine NORM (Normal)
[2022-01-22 00:02] LABS: Appearance, Urine Clear (Clear); Color, Urine Yellow (P-Yellow)
[2022-01-22] MEDS ORDERED: Magnesium Citr296 ML PO (00:11)
[2022-01-22] MEDS ORDERED: Magic Bullet10 MG PR (00:11)
[2022-01-22 00:19] LABS: Bacteria Not Seen /hpf; Red Blood Cells, Urine Not Seen /hpf (0-2); Squamous Epithelial Cells Not Seen /hpf (Few); White Blood Cells, Urine Not Seen /hpf (0-5)
== END 2022-01-22 01:24 | disposition home or self-care (01) ==
LOC: ER 18:32
PROVIDERS: Physician Assistant
DX: K59.00 Constipation, unspecified (principal); I10 Essential (primary) hypertension; Z88.5 Allergy status to narcotic agent; Z79.899 Other long term (current) drug therapy
CPT/HCPCS: 36415; 74018; 80053; 81001; 85025; 99284-25

== ENCOUNTER 2022-01-22 19:21 | Inpatient (IN) | payer MEDICARE, OTHER ==
[~2022-01-22] VITALS: Ht 170.2 cm; Wt 74.7 kg
[~2022-01-22 19:21] MED LIST changes: -MELA3 PO; +MELATONIN5 M1 PO; +MIRAPEX0.25 M2 PO; +Magic Bullet10 MG PR; +Magnesium Citr296 ML PO; -PRAM.125 PO
[2022-01-22 20:54] LABS: BASOPHILS ABSOLUTE AUTO 0.03 K/mm3 (0.00-0.23); BASOPHILS PERCENT AUTO 0 % (0-2); EOSINOPHILS PERCENT AUTO 0 % (0-6); Hematocrit 42.5 % (33.0-51.0); Hemoglobin 14.3 g/dL (11.5-16.0); IMMATURE GRAN ABSOLUTE AUTO 0.04 K/mm3 (0.00-0.10); IMMATURE GRAN PERCENT AUTO 0 % (0-1); LYMPHOCYTES ABSOLUTE AUTO 1.03 K/mm3 (0.84-5.20); LYMPHOCYTES PERCENT AUTO 8 % (21-46); MONOCYTES ABSOLUTE AUTO 0.76 K/mm3 (0.16-1.47); MONOCYTES PERCENT AUTO 6 % (4-13); Mean Corpuscular HGB 31.2 pg (26.0-34.0); Mean Corpuscular HGB Conc 33.6 g/dL (31.5-36.5); Mean Corpuscular Volume 93 fL (80-100); Mean Platelet Volume 10.3 fL (9.1-12.4); NEUTROPHILS ABSOLUTE AUTO 11.07 K/mm3 (1.96-9.15); NEUTROPHILS PERCENT AUTO 86 % (41-73); Platelet Count 212 K/mm3 (150-400); RDW Coefficient Variation 13.8 % (11.7-14.2); RDW Standard Deviation 46.6 fL (35.1-46.3); Red Blood Cell Count 4.58 M/mm3 (3.80-5.20); White Blood Cell Count 12.93 K/mm3 (4.00-11.30)
[2022-01-22 21:16] LABS: Albumin, Blood 3.8 g/dL (3.4-5.0); Albumin/Globulin Ratio 1.1 (0.8-1.8); Bilirubin, Total 0.9 mg/dL (0.1-1.0); Bun/Creatinine Ratio 27.4 (12.0-20.0); Calcium, Blood 11.8 mg/dL (8.5-10.1); Creatinine, Blood 1.35 mg/dL (0.40-1.00); Globulin, Blood 3.5 g/dL (2.2-4.0); Magnesium, Blood 2.2 mg/dL (1.6-2.4); Potassium, Blood 4.8 mmol/L (3.5-5.5); Total Protein, Blood 7.3 g/dL (6.4-8.2)
[2022-01-22 21:43] LABS: International Normalized Ratio 1.11; Prothrombin Time Results 11.6 Sec (9.7-11.5)
[2022-01-23 05:36] LABS: BASOPHILS ABSOLUTE AUTO 0.03 K/mm3 (0.00-0.23); BASOPHILS PERCENT AUTO 0 % (0-2); EOSINOPHILS ABSOLUTE AUTO 0.03 K/mm3 (0.00-0.68); EOSINOPHILS PERCENT AUTO 0 % (0-6); Hemoglobin 13.3 g/dL (11.5-16.0); IMMATURE GRAN ABSOLUTE AUTO 0.03 K/mm3 (0.00-0.10); IMMATURE GRAN PERCENT AUTO 0 % (0-1); LYMPHOCYTES ABSOLUTE AUTO 1.67 K/mm3 (0.84-5.20); LYMPHOCYTES PERCENT AUTO 15 % (21-46); MONOCYTES ABSOLUTE AUTO 0.98 K/mm3 (0.16-1.47); MONOCYTES PERCENT AUTO 9 % (4-13); Mean Corpuscular HGB 31.2 pg (26.0-34.0); Mean Corpuscular HGB Conc 33.3 g/dL (31.5-36.5); Mean Corpuscular Volume 94 fL (80-100); Mean Platelet Volume 10.4 fL (9.1-12.4); NEUTROPHILS ABSOLUTE AUTO 8.15 K/mm3 (1.96-9.15); NEUTROPHILS PERCENT AUTO 75 % (41-73); Platelet Count 190 K/mm3 (150-400); RDW Coefficient Variation 13.7 % (11.7-14.2); Red Blood Cell Count 4.26 M/mm3 (3.80-5.20); White Blood Cell Count 10.89 K/mm3 (4.00-11.30)
[2022-01-23 06:09] LABS: Bun/Creatinine Ratio 27.8 (12.0-20.0); Calcium, Blood 11.4 mg/dL (8.5-10.1); Creatinine, Blood 1.26 mg/dL (0.40-1.00); Potassium, Blood 4.3 mmol/L (3.5-5.5)
--- NOTE | 2022-01-23 06:43 | NUR ---
SHIFT SUMMARY NG TUBE PLACED CONTINUED ON LOW INTERMITTENT SUCTION FROM ED. 150ML GI OUTPUT THIS SHIFT. A/O X1 SELF- BASELINE DEMENTIA 2 PERSON ASSIST TO BEDSIDE COMMODE. PT RESTING COMFORTABLY WHEN ROUNDING OCCASSIONALLY RESTLESS, CAMERA WATCHING TO ASSURE NG/IV TUBE IS NOT SELF REMOVED
--- NOTE | 2022-01-23 09:39 | NUR ---
Pt laying in bed, awake, alert, some confusion, but can tell me she is in the hosp, and not having pain lungs are clear t/o, on r/a, resp even and unlabored, no cough noted, hrr, abd flat soft tender with palpation, ng to lis, npo at this time, spoke with Dr. Tucker, will hold po meds for now, will be going for a small bowel follow through via cart, skin has a red rash under left breast, miconazole powder ordered and applied this am, she is a two person assist to bsc, barely shuffles her feet, iv leaking this am, will replace, yeni, call light in reach.
--- NOTE | 2022-01-23 11:37 | NUR ---
Pt leaving for radiology studies via [place].
--- NOTE | 2022-01-23 12:55 | NUR ---
PT VOMITING AGAIN, ABOUT 500ML EMISIS, CLEANED HER UP, WAITING TO GO DOWN TO RADIOLOGY FOR IMAGING. CALL LIGHT IN REACH.
--- NOTE | 2022-01-23 17:46 | NUR ---
pt has had the suction clamped all day, has vomited large quantity of emisis on three different occations and abd is very painful. she has been to radiology three times, and they will take her again in the am, she is in distress with her nausia, radiology said to put her on suction if I needed to, did this and she put out 1300mls, no further changes this shift. call light in reach.
--- NOTE | 2022-01-24 06:16 | NUR ---
SHIFT SUMMARY PT IS AN 89 Y/O FEMALE, ADMITTED FOR SBO. NG TUBE IN PLACE ON LOW TO INTERMITTENT SUCTION. PT HAD APPROXIMATELY 1500 ML OUTPUT FROM NG TUBE. ABD IS MILDLY DISTENDED AND FIRM. PT DENIED ANY ABD DISCOMFORT DURING THE NIGHT. NPO. PT RECEIVING LR @ 100 ML/HR. VITAL SIGNS STABLE. NO OTHER ACUTE CHANGES IN PT CONDITION NOTED DURING THE NIGHT. WILL CONTINUE TO MONITOR AND TREAT PER EMAR UNTIL HAND OFF TO DAY SHIFT RN.
--- NOTE | 2022-01-24 11:10 | NUR ---
Pt resting in bed upon arrival. Pt A&OX2/3 and reports discomfort has improved some. Pt is quite pleasant and reports no concerns at this time. Spoke with Primary RN Cassidy and discussed case. Called and spoke with Pt's daughter Viji (MPOA). Offered supportive converations and listening. Discussed plan for procedure and listened as Viji reports Pt would not want a colostomy. She reports having a conversation with surgeon and relayed concerns. She reports surgeon's plan to contact her if needed. Continued therapeutic and supportive listening. Viji reports Pt has shown a significant decline in Pt over the last couple of months and knows Pt could continue to decline. Discussed potential side effects for procedures for Pt's who suffer from dementia including the possibility of delerium. Viji reports being aware and is thinking of coming down this weekend to see Pt. Viji expresses appreciation of conversation. Provided Palliative Care contact information and instructed to call with any questions or concerns. Palliative Care will remain available.
[2022-01-24 11:17] LABS: Influenza A, PCR NEGATIVE (NEGATIVE); Influenza B, PCR NEGATIVE (NEGATIVE); Resp Syncytial Virus, PCR NEGATIVE (NEGATIVE); SARS-Cov-2 (COVID-19) PCR, MMC NEGATIVE (NEGATIVE)
--- NOTE | 2022-01-24 17:28 | NUR ---
PT BACK TO ROOM, OR TO GET FOR PROCEDURE. DISCUSSED WITH MEDICAL FLOOR RN WHO IS ASSUMING CARE OF PT.
--- NOTE | 2022-01-24 19:21 | NUR ---
01/24/221920 Jeffy Angelo PATIENT NOTED TO HAVE DRY RED SCALY SKIN UNDER LEFT BREAST 2X5 INCHES. SURGEON AWARE. AREA AVOIDED DURING SURGICAL PREP. ALSO NOTED TO HAVE REDNESS IN SACRAL AREA APPROXIMATLY 5X5 INCHES, CENTERED, UPON TRANSFER TO OR BED. PINK PIGAZZI IN PLACE. PT GIVEN 2G ANCEF VIA IV RIGHT WRIST AT 1909.
--- NOTE | 2022-01-24 19:23 | NUR ---
SHIFT SUMMARY PATIENT CURRENTLY IN SURGERY. PATIENT HAS HISTORY OF DEMENTIA AND WAS CONFUSED T/O SHIFT. PATIENT NPO FOR SURGERY. PATIENT PULLED OUT IV AND CONTINUALLY REMINDED TO LEAVE NG TUBE ALONE. NG TUBE TO SUCTION. PATIENT GETS UP TO BSC WITH 1PA. PATIENT HAD HIGH CBG T/O AND MEDICATED PER JAN. WILL CONTINUE TO MONITOR.
--- NOTE | 2022-01-25 07:50 | NUR ---
SHIFT SUMMARY PATIENT HAD NO COMPLAINTS OF PAIN OR SHORTNESS OF BREATH AFTER RETURNING FROM SURGERY. SHE ATTEMPTED TO PULL OUT HER NG TUBE SO AN ORDER FOR BILATERAL SOFT WRIST RESTRAINTS WERE OBTAINED FROM DR Maurice GRANT AT 2251. NO OTHER ISSUE NOTED OVERNIGHT. BED IN LOWEST POSITION WITH WHEELS LOCKED AND ALARM ON. CALL LIGHT WITHIN REACH. REPORT GIVEN TO ONCOMING RN.
--- NOTE | 2022-01-25 17:49 | NUR ---
FOUND PATIENT WITH PEN ATTEMPTING TO GET WRIST RESTRAINTS OFF. SMALL SKIN TEAR ON RIGHT WRIST FROM PEN. WOUND COVERED WITH BANDAID AND ALL OBJECTS PLACED OUT OF REACH FOR PATIENT SAFETY.
--- NOTE | 2022-01-25 18:38 | NUR ---
SHIFT SUMMARY PATIENT ALERT TO SELF, CONFUSED AND FORGETFUL. PATIENT ATTEMPTED TO PULL NG TUBE OUT, WRIST RESTRAINTS IN PLACE. PATIENT HAD SURGERY LAST NIGHT. FOUR PORTS SITES COVERED WITH DERMABOND PRESENT ON ABDOMEN. PATIENT 2PA TO BSC. SMALL BM THIS AFTERNOON. PATIENT STILL NPO WITH NG TUBE TO LOW INTERMITENT SUCTION. RECEIVING IV FLUIDS. PATIENT'S DAUGHTER AT BEDSIDE THIS AFTERNOON. BED IN LOW POSITION. WILL CONTINUE TO MONITOR. .
--- NOTE | 2022-01-26 06:40 | NUR ---
SHIFT SUMMARY PATIENT ALERT AND ORIENTED X2. HAD NO COMPLAINTS OF PAIN OR SHORTNESS OF BREATH. WRIST RESTRAINTS REMOVED. NO ISSUES NOTED OVERNIGHT. BED IN LOWEST POSITION WITH WHEELS LOCKED AND ALARM ON. CALL LIGHT WITHIN REACH. REPORT GIVEN TO ONCOMING RN.
--- NOTE | 2022-01-26 09:02 | NUR ---
CALL PLACE TO IN REFERENCE TO PATIENT PO MEDICATION ON PATIENT IS NPO WITH MINIMAL BOWEL SOUNDS NOTED. PER MD HOLD ALL PO MEDICATION.
--- NOTE | 2022-01-26 18:07 | NUR ---
PATIENT IS AWAKE,ALERT AND ORIENTED TIME TWO.DENIES PAIN. NG TUBE WAS REMOVED BY AND PATIENT DIET WAS ADVISED TO CLEAR LIQUID, PATIENT TOLERATE DIET WELL. PATIENT HAD A LARGE BOWEL MOVEMENT TODAY, NO ACUTE DISTRESS. PATIENT DAUGHTER AT BEDSIDE. AND DR. SLATER DISCUSS PLAN OF CARE WITH DAUGHTER AT BEDSIDE. NO ACUTE DISTRESS NOTED.
[2022-01-27 05:13] LABS: BASOPHILS ABSOLUTE AUTO 0.02 K/mm3 (0.00-0.23); BASOPHILS PERCENT AUTO 0 % (0-2); EOSINOPHILS ABSOLUTE AUTO 0.13 K/mm3 (0.00-0.68); EOSINOPHILS PERCENT AUTO 1 % (0-6); Hematocrit 40.7 % (33.0-51.0); Hemoglobin 13.3 g/dL (11.5-16.0); IMMATURE GRAN ABSOLUTE AUTO 0.05 K/mm3 (0.00-0.10); IMMATURE GRAN PERCENT AUTO 1 % (0-1); LYMPHOCYTES ABSOLUTE AUTO 1.32 K/mm3 (0.84-5.20); LYMPHOCYTES PERCENT AUTO 14 % (21-46); MONOCYTES ABSOLUTE AUTO 0.99 K/mm3 (0.16-1.47); MONOCYTES PERCENT AUTO 11 % (4-13); Mean Corpuscular HGB 31.1 pg (26.0-34.0); Mean Corpuscular HGB Conc 32.7 g/dL (31.5-36.5); Mean Corpuscular Volume 95 fL (80-100); Mean Platelet Volume 10.6 fL (9.1-12.4); NEUTROPHILS ABSOLUTE AUTO 6.75 K/mm3 (1.96-9.15); NEUTROPHILS PERCENT AUTO 73 % (41-73); Platelet Count 177 K/mm3 (150-400); RDW Coefficient Variation 13.1 % (11.7-14.2); RDW Standard Deviation 45.2 fL (35.1-46.3); Red Blood Cell Count 4.28 M/mm3 (3.80-5.20); White Blood Cell Count 9.26 K/mm3 (4.00-11.30)
[2022-01-27 06:12] LABS: Albumin, Blood 2.7 g/dL (3.4-5.0); Albumin/Globulin Ratio 0.9 (0.8-1.8); Bilirubin, Total 0.9 mg/dL (0.1-1.0); Bun/Creatinine Ratio 27.6 (12.0-20.0); Calcium, Blood 10.5 mg/dL (8.5-10.1); Creatinine, Blood 1.16 mg/dL (0.40-1.00); Globulin, Blood 3.1 g/dL (2.2-4.0); Potassium, Blood 3.1 mmol/L (3.5-5.5); Total Protein, Blood 5.8 g/dL (6.4-8.2)
--- NOTE | 2022-01-27 12:12 | NUR ---
Home Health referral: Spoke with daughter Viji Park in home health agency selection. No preference; referral given to [facility]. [facility] Liaison Juliana contacted. Patient has dementia.
--- NOTE | 2022-01-27 17:38 | NUR ---
PATIENT IS AWAKE,ALERT AND ORIENTED TO SELF. PATIENT DENIES PAIN. PATIENT PASSING GAS. MD MADE AWRE THAT PATIENT BLOOD SUGAR WAS ELEVATED AND DECREASE POTASSIUM LEVEL, NEW ORDER RECIEVED FOR ISULIN AND POTTASIUM.
--- NOTE | 2022-01-28 05:54 | NUR ---
Patient alert and oriented, denies pain or disconfort. She slept well last night. No new events occurs. Paitient still weak. She is a one assist. Bed alarm on, bed in low position, call light waitting reach. We will continue to monitor patient and report to the oncoming Nurse.
[2022-01-28 10:50] LABS: BASOPHILS ABSOLUTE AUTO 0.02 K/mm3 (0.00-0.23); BASOPHILS PERCENT AUTO 0 % (0-2); EOSINOPHILS ABSOLUTE AUTO 0.15 K/mm3 (0.00-0.68); EOSINOPHILS PERCENT AUTO 2 % (0-6); Hematocrit 43.2 % (33.0-51.0); Hemoglobin 14.1 g/dL (11.5-16.0); IMMATURE GRAN ABSOLUTE AUTO 0.06 K/mm3 (0.00-0.10); IMMATURE GRAN PERCENT AUTO 1 % (0-1); LYMPHOCYTES ABSOLUTE AUTO 1.14 K/mm3 (0.84-5.20); LYMPHOCYTES PERCENT AUTO 14 % (21-46); MONOCYTES ABSOLUTE AUTO 0.72 K/mm3 (0.16-1.47); MONOCYTES PERCENT AUTO 9 % (4-13); Mean Corpuscular HGB 31.2 pg (26.0-34.0); Mean Corpuscular HGB Conc 32.6 g/dL (31.5-36.5); Mean Corpuscular Volume 96 fL (80-100); Mean Platelet Volume 10.9 fL (9.1-12.4); NEUTROPHILS PERCENT AUTO 74 % (41-73); Platelet Count 206 K/mm3 (150-400); RDW Coefficient Variation 13.1 % (11.7-14.2); RDW Standard Deviation 46.3 fL (35.1-46.3); Red Blood Cell Count 4.52 M/mm3 (3.80-5.20); White Blood Cell Count 7.89 K/mm3 (4.00-11.30)
[2022-01-28 11:20] LABS: Albumin, Blood 2.7 g/dL (3.4-5.0); Albumin/Globulin Ratio 0.8 (0.8-1.8); Bilirubin, Total 0.6 mg/dL (0.1-1.0); Bun/Creatinine Ratio 28.4 (12.0-20.0); Calcium, Blood 10.3 mg/dL (8.5-10.1); Creatinine, Blood 1.16 mg/dL (0.40-1.00); Globulin, Blood 3.5 g/dL (2.2-4.0); Potassium, Blood 3.5 mmol/L (3.5-5.5); Total Protein, Blood 6.2 g/dL (6.4-8.2)
[2022-01-29] MEDS ORDERED: ACET500 PO (04:44)
[2022-01-29] MEDS ORDERED: ELIQUIS5 M2 PO (04:45)
[2022-01-29] MEDS ORDERED: VISBIOME 112.51 EACH PO (04:51)
[2022-01-29] MEDS ORDERED: Vitamin D1000 UNI1 PO (04:53)
[2022-01-29] MEDS ORDERED: Calcium Carbon500 MG PO (04:54)
[2022-01-29] MEDS ORDERED: TRAM50 PO (04:56)
[2022-01-29 13:09] LABS: Influenza A, PCR NEGATIVE (NEGATIVE); Influenza B, PCR NEGATIVE (NEGATIVE); Resp Syncytial Virus, PCR NEGATIVE (NEGATIVE); SARS-Cov-2 (COVID-19) PCR, MMC NEGATIVE (NEGATIVE)
[2022-01-29] MEDS ORDERED: GLIP5ER PO (13:43)
[2022-01-29] MEDS ORDERED: METF500 PO (13:43)
--- NOTE | 2022-01-29 15:12 | NUR ---
SUMMARY PT DISCHARGED TO [facility], BACK TO HOME, RN FROM THE FACILITY HAS BEEN IN TO SEE THE PT, PT TAKEN OUT VIA WHEELCHAIR, CALLED AND NOTIFIED THE FACILITY
--- NOTE | 2022-01-30 08:47 | NUR ---
Per Dr. Smith discharge appropriate. Patient does not oppose discharge. Patient is discharged back to [facility] with Home Health orders. Daughter Lee Ann notified of discharge. [facility] was notified of discharge. Date of discharge: 01/29/2022 Date of admission: 01/22/2022 Transportation provided by: [facility] Ordered: None ordered Follow-ups needed: [facility] JOEY will contact patient to schedule hospital follow-up visit. Patient has dementia. JOEY will contact [facility] to coordinate follow-up. Provider/PCP: Dr. Kar Birmingham When: Specialty: N/A When: N/A Confirmed numbers: Contact [facility] at [phone] or Daughter Lee Ann [phone] Comment: [facility] RN will contact PCP with any questions regarding medication management, social service needs, and if condition worsens go to Urgent Care/ER. No barriers to discharge. Patient lives in assisted living and has 24/7 support.
== END 2022-01-29 15:09 | disposition home health service (06) | DRG 336 ==
LOC: ER 19:21 → MEDS 01-23 00:19
PROVIDERS: Family Medicine; Internal Medicine; Student in an Organized Health Care Education/Training Program; Surgery; ADMIT Internal Medicine
PROC: 0DNB4ZZ Release Ileum, Percutaneous Endoscopic Approach (ICD-10-PCS; 2022-01-24)
PROC: 0DNN4ZZ Release Sigmoid Colon, Percutaneous Endoscopic Approach (ICD-10-PCS; principal; 2022-01-24 16:00)
PROC: 0DNV4ZZ Release Mesentery, Percutaneous Endoscopic Approach (ICD-10-PCS; 2022-01-24 16:00)
DX: K56.609 Unspecified intestinal obstruction, unspecified as to partial versus complete obstruction (principal); I51.81 Takotsubo syndrome; E11.65 Type 2 diabetes mellitus with hyperglycemia; E87.6 Hypokalemia; Z20.822 Contact with and (suspected) exposure to COVID-19; Z28.21 Immunization not carried out because of patient refusal; I12.9 Hypertensive chronic kidney disease with stage 1 through stage 4 chronic kidney disease, or unspecified chronic kidney disease; N18.30 Chronic kidney disease, stage 3 unspecified; F03.90 Unspecified dementia, unspecified severity, without behavioral disturbance, psychotic disturbance, mood disturbance, and anxiety; E11.22 Type 2 diabetes mellitus with diabetic chronic kidney disease; M19.90 Unspecified osteoarthritis, unspecified site; G25.81 Restless legs syndrome; Z66 Do not resuscitate; Z90.49 Acquired absence of other specified parts of digestive tract; Z90.710 Acquired absence of both cervix and uterus; Z90.722 Acquired absence of ovaries, bilateral; Z98.890 Other specified postprocedural states; Z88.5 Allergy status to narcotic agent; Z88.6 Allergy status to analgesic agent; Z79.02 Long term (current) use of antithrombotics/antiplatelets; Z79.82 Long term (current) use of aspirin; Z79.899 Other long term (current) drug therapy
CPT/HCPCS: 0241U; 36415; 74176; 74250; 80048; 80053; 82947; 83735; 85025; 85610; 85730; 93005; 93010; 96365; 96366; 96374; 96375; 97110; 97116; 97162; 97165; 97530; 97535; 99285-25; A9270; C9113; J1100; J1815; J2405; J2704; J3010; J7120